=== PATIENT | male | born 1960 | race Caucasian/White ===

== ENCOUNTER 2017-05-28 16:49 | Emergency (ER) | payer OTHER ==
[2017-05-28 16:58] VITALS: TEMP 97.9
[2017-05-28] MEDS ORDERED: KETOROLAC 30 MG/1 ML SDV IVP ONE (17:29)
[2017-05-28] MEDS ORDERED: CYCLOBENZAPRINE 10 MG TAB PO ONE (17:29)
--- NOTE | 2017-05-28 17:34 | EDPHY ---
H & P Time Seen by Provider: 05/28/17 16:52 HPI/ROS: HPI Back injury. 56-year-old male by private vehicle with family. The patient was awkwardly removing a box from a crawl space when he suddenly twisted his lower back. He complains of pain to the middle of his lower back area. He states that he has been unable to walk because with his pain. He was brought to the emergency department by ambulance. He denies any bowel or bladder incontinence. No loss of sensation or weakness in his lower extremities. No history of fall or other trauma. No history of malignancy. No fever. No other red flags. ROS: Constitutional: No fever, no chills. No weakness. Gastrointestinal: No abdominal pain, no vomiting, no diarrhea. Genitourinary: No hematuria. No dysuria or increased frequency with urination. Musculoskeletal: As above. No neck pain. No myalgias or arthralgias. Skin: No rashes. No lacerations or abrasions. Neurological: No headache. No focal weakness or altered sensation. Past medical history: Tonsillectomy, insulin-dependent diabetes. Social history: Nonsmoker. No alcohol. Here with family. Physical Exam: General Appearance: Alert, no distress. This patient is responding to questions appropriately and in full sentences. This patient appears well- hydrated and well-nourished. Eyes: Pupils equal and round no pallor or injection. No lid edema, erythema or injection. Back exam: He has got paraspinal tenderness on palpation mid lumbar, L4 through L5. He does not have midline thoracic, lumbar, sacral tenderness on palpation. Negative same side and cross-eyed straight leg raise test. The patient is neurologically intact in all myotomes in dermatomes of the bilateral lower extremities. Normal capillary refill in all digits of both feet. Gastrointestinal: Abdomen is soft and nontender, no masses, bowel sounds normal. No focal tenderness at McBurney's point. No Zabala sign. Neurological: Motor sensory function is grossly intact. Cranial nerves are normal. Gait is normal. Skin: Warm and dry, no rashes. Musculoskeletal: Neck is supple and nontender. Extremities are symmetrical. All joints range without pain or impingement. Psychiatric: No agitation. No depression. Database: EKG: Imaging: LS spine x-ray series: Negative for fracture, subluxation, dislocation. No other acute pathology. Interpreted by me. Procedures: Emergency department course: Vital signs reviewed. Patient is moderately hypertensive. Vital signs otherwise normal. No contraindications to NSAIDs. Normal creatinine from October of 2016. No history of gastric ulcers. He was given 30 mg of IV Toradol and 10 mg of oral Flexeril initially. 6:30 p.m., patient re-evaluated. We tried to get him up and walk in. He was able to get into this sitting position but could not get past that secondary to pain. He will be given 0.5 mg of IV hydromorphone. Results of his LS spine x- ray discussed with him and his . 7:15 p.m., patient feels better after above IV hydromorphone. He was able to get up and ambulate under his own power. Repeat neurologic Assessment is nonfocal. He feels comfortable going home at this time. I will have him follow -up with [facility] for re-evaluation and further management. He will be prescribed high-dose ibuprofen and Flexeril. He understands his follow-up. Return to emergency department precautions reviewed thoroughly with him. All of his questions were answered. He was discharged in good condition with his . Differential Diagnosis: The differential diagnosis on this patient includes but is not limited to lumbar sacral strain. Acute disc herniation with radiculopathy, epidural compression syndrome, epidural abscess, AAA, cauda equina syndrome unlikely. This represents a partial list of diagnoses considered. These considerations are based on history, physical exam, past history, reassessment and diagnostic testing. Smoking Status: Never smoked Constitutional: Initial Vital Signs Temperature (C) 36.6 C 05/28/17 16:55 Heart Rate 61 05/28/17 16:55 Respiratory Rate 16 05/28/17 16:55 Blood Pressure 158/92 H 05/28/17 16:55 O2 Sat (%) 97 05/28/17 16:55 O2 Delivery Mode Room Air Allergies/Adverse Reactions: No Known Allergies Allergy (Unverified 05/28/17 16:52) Home Medications: Medication Instructions Recorded Aspirin 05/28/17 Cyclobenzaprine [Flexeril 10 MG 10 mg PO TID #9 tab 05/28/17 (*)] Humalog 05/28/17 SIMVASTATIN 05/28/17 Medical Decision Making - Data Points Medications Given: Discontinued Medications Cyclobenzaprine HCl (Flexeril) 10 mg PO EDNOW ONE Stop: 05/28/17 17:30 Last Admin: 05/28/17 17:44 Dose: 10 mg Cyclobenzaprine HCl (Flexeril 10 Mg Prepack#3) 1 btl TAKEHOME EDNOW ONE Stop: 05/28/17 19:46 Last Admin: 05/28/17 19:46 Dose: 1 btl Hydromorphone HCl (Dilaudid) 0.5 mg IVP EDNOW ONE Stop: 05/28/17 18:31 Last Admin: 05/28/17 18:40 Dose: 0.5 mg Ketorolac Tromethamine (Toradol) 30 mg IVP EDNOW ONE Stop: 05/28/17 17:30 Last Admin: 05/28/17 17:44 Dose: 30 mg Departure - Departure Disposition: Home, Routine, Self-Care Clinical Impression: Lower back injury Condition: Good Instructions: Cyclobenzaprine (By mouth), Low Back Strain (ED) Additional Instructions: Read and follow provided instructions. Follow-up with tanja Burns within the next 2-3 days for re-evaluation. You can start taking ibuprofen tomorrow morning. Ibuprofen dosin mg every 6 hours with meals for the next 3 days only. Take only as needed for pain. Return to the emergency department for worsening symptoms, worsening pain, bowel or bladder incontinence, loss of sensation or weakness in your lower extremities or other serious concerns. Referrals: Tanja Burns [Outside] - As per Instructions Prescriptions: Cyclobenzaprine [Flexeril 10 MG (*)] 10 mg PO TID #9 tab
[2017-05-28] MEDS ORDERED: HYDROmorphONE/DILAUDID 2 MG/ML INJ IVP ONE (18:30)
[2017-05-28 19:37] VITALS: BP 120/80; PULSE 50; RESP 18; O2SAT 98
[2017-05-28] MEDS ORDERED: CYCLOBENZAPRINE 10MG PREPACK#3 BTL TAKEHOME ONE ×2 (19:44→19:45)
== END 2017-05-28 19:47 | disposition home or self-care (01) ==
LOC: EDUNIT# → EDBD
DX: S39.92XA Unspecified injury of lower back, initial encounter (principal); E11.9 Type 2 diabetes mellitus without complications; Z79.4 Long term (current) use of insulin; Z79.82 Long term (current) use of aspirin; X50.9XXA Other and unspecified overexertion or strenuous movements or postures, initial encounter; Y92.89 Other specified places as the place of occurrence of the external cause; Y93.89 Activity, other specified
CPT/HCPCS: 96374; J1170; J1885